=== PATIENT | female | born 1965 | race African-American/Black ===

== ENCOUNTER 2017-09-25 12:01 | Observation (INO) | payer MEDICARE, OTHER ==
[~2017-09-25] VITALS: Ht 165.1 cm; Wt 58.0 kg
[2017-09-25 12:24] VITALS: BP 153/87; PULSE 94; RESP 19; TEMP 98.2; O2SAT 99
[2017-09-25] MEDS ORDERED: METF500T PO (13:56)
[2017-09-25] MEDS ORDERED: DIAZ10TA PO (13:56)
[2017-09-25] MEDS ORDERED: VALS1TAB65 PO (13:56)
[2017-09-25] MEDS ORDERED: PRAV20TA2 PO (13:57)
[2017-09-25] MEDS ORDERED: MONT10TA4 PO (13:59)
[2017-09-25] MEDS ORDERED: [UNRECOGNIZED DRUG - OTHER] (13:59)
[2017-09-25] MEDS ORDERED: [UNRECOGNIZED DRUG - OTHER] EACH EYE (13:59)
[2017-09-25] MEDS ORDERED: ALLE4TAB10 PO (13:59)
[2017-09-25] MEDS ORDERED: ASPI81CH6 CHEW (13:59)
[2017-09-25] MEDS ORDERED: OMEP20TA93 PO (13:59)
[2017-09-25] MEDS ORDERED: SODIUM CHLORIDE 0.9% FLUSH 10 ML FLUSH IV FLUSH PRN ×2 (14:00→16:15)
--- NOTE | 2017-09-25 14:01 | PD ---
HPI Chief Complaint: Abdominal Pain Time Seen by Provider: 13:45 Travel History International Travel<30 days: No Contact w/Intl Traveler<30days: No Traveled to known affect area: No History of Present Illness HPI Per patient and mother, she is from [place], and decided to move up here 3 years ago. They currently live in [place], has never been to this hospital before. Complaint is swelling to arms and legs as well as swelling to her abdomen. Patient is also per mother has not had a bowel movement despite attempts with magnesium citrate, suppositories and enemas. Patient allegedly was in [facility] [place] prior, but per mother they have not done anything for her. Patient's mother also gives history that the patient is having more more difficulty swallowing food, currently not having any trouble swallowing liquids. Main complaint is having trouble moving her bowels. Denies any acute abdominal pain, but this no bloating. Denies any nausea vomiting or diarrhea. Denies any alleviating or aggravating factors. Denies any known drug allergy Past medical history significant for cerebral palsy wheelchair-bound, diabetes hypertension hypercholesterolemia PFSH Past Medical History ?: Not Social History Tobacco Use: No Allergies-Medications (Allergen,Severity, Reaction): Coded Allergies: No Known Allergies (Unverified , 09/25/17) Reported Meds & Prescriptions Reported Meds & Active Scripts Active Reported [lastain eye gtt] [atoz eye gtt] EACH EYE Allergy Tablets (Chlorpheniramine Maleate) 4 Mg Tab Unknown Dose PO Q4H PRN Montelukast (Montelukast Sodium) 10 Mg Tab 10 Mg PO HS Aspirin Low Dose (Aspirin) 81 Mg Chew 81 Mg CHEW DAILY Omeprazole 20 Mg Tab 20 Mg PO DAILY Pravastatin 20 Mg Tab 20 Mg PO DAILY Valsartan 160 Mg Tab 160 Mg PO DAILY Diazepam 10 Mg Tab 10 Mg PO DAILY Metformin (Metformin HCl) 500 Mg Tab 500 Mg PO BIDPC Review of Systems General / Constitutional: No: Fever Eyes: No: Visual changes HENT: No: Headaches Cardiovascular: No: Chest Pain or Discomfort Respiratory: No: Shortness of Breath Gastrointestinal: Positive: Abdominal Pain Genitourinary: No: Dysuria Musculoskeletal: No: Pain Skin: No Rash Neurologic: No: Weakness Psychiatric: No: Depression Endocrine: No: Polydipsia Hematologic/Lymphatic: No: Easy Bruising Physical Exam Narrative GENERAL: SKIN: Warm and dry. HEAD: Atraumatic. Normocephalic. EYES: Pupils equal and round. No scleral icterus. No injection or drainage. ENT: No nasal bleeding or discharge. Mucous membranes pink and moist. NECK: Trachea midline. No JVD. CARDIOVASCULAR: Regular rate and rhythm. RESPIRATORY: No accessory muscle use. Clear to auscultation. Breath sounds equal bilaterally. GASTROINTESTINAL: Abdomen soft, non-tender, nondistended. Hepatic and splenic margins not palpable. MUSCULOSKELETAL: Extremities without clubbing, cyanosis, or edema. No obvious deformities. Patient is showing flexor contractures to lower extremities and upper extremities, patient is able to move range of motion through approximately shoulders and minimally at hips patient is not able to bear weight and ambulate due to her cerebral palsy NEUROLOGICAL: Awake and alert. Per mother patient is at her baseline speech which is slurred PSYCHIATRIC: Appropriate mood and affect; insight and judgment normal. Data Data Last Documented VS Vital Signs Date Time Temp Pulse Resp B/P (MAP) Pulse Ox O2 Delivery O2 Flow Rate FiO2 09/25/17 15:06 98 Room Air 09/25/17 12:24 98.2 94 19 153/87 (109) Orders Orders Complete Blood Count With Diff (09/25/17 12:28) Comprehensive Metabolic Panel (09/25/17 12:28) Urinalysis - C+S If Indicated (09/25/17 12:28) Iv Access Insert/Monitor (09/25/17 12:28) Oxygen Administration (09/25/17 12:28) Oximetry (09/25/17 12:28) Lipase (09/25/17 12:28) Ct Abd/Pel W/O Iv Contrast (09/25/17 13:57) Ecg Monitoring (09/25/17 13:57) NPO (09/25/17 13:57) Sodium Chloride 0.9% Flush (Ns Flush) (09/25/17 14:00) B-Type Natriuretic Peptide (09/25/17 13:57) Ckmb (Isoenzyme) Profile (09/25/17 13:57) Troponin I (09/25/17 13:57) Chest, Single Ap (09/25/17 13:57) Admit Order (Ed Use Only) (09/25/17 16:15) Sodium Chlorid 0.9% 500 Ml Inj (Ns 500 M (09/25/17 16:15) Place In Observation (09/25/17 ) Vital Signs (Adult) Q4H (09/25/17 16:14) Activity Oob With Assistance (09/25/17 16:14) Slitter Creaser Slotter Helper / Telemetry .CONTINUOUS (09/25/17 16:14) Diet Clear Liquid (09/25/17 Dinner) Sodium Chloride 0.9% Flush (Ns Flush) (09/25/17 16:15) Sodium Chloride 0.9% Flush (Ns Flush) (09/25/17 21:00) Basic Metabolic Panel (Bmp) (09/26/17 06:00) Complete Blood Count With Diff (09/26/17 06:00) Case Management Consult (09/25/17 16:14) Naloxone Inj (Narcan Inj) (09/25/17 16:15) Consult Gastroenterology (09/25/17 ) Dext 5%-Nacl 0.45% 1000 Ml Inj (D5w-1/2 (09/25/17 16:15) Labs Laboratory Tests Test 09/25/17 14:50 White Blood Count 6.8 TH/MM3 Red Blood Count 4.60 MIL/MM3 Hemoglobin 13.0 GM/DL Hematocrit 40.4 % Mean Corpuscular Volume 87.8 FL Mean Corpuscular Hemoglobin 28.4 PG Mean Corpuscular Hemoglobin Concent 32.3 % Red Cell Distribution Width 15.6 % Platelet Count 185 TH/MM3 Mean Platelet Volume 9.9 FL Neutrophils (%) (Auto) 58.3 % Lymphocytes (%) (Auto) 30.0 % Monocytes (%) (Auto) 5.7 % Eosinophils (%) (Auto) 5.4 % Basophils (%) (Auto) 0.6 % Neutrophils # (Auto) 3.9 TH/MM3 Lymphocytes # (Auto) 2.0 TH/MM3 Monocytes # (Auto) 0.4 TH/MM3 Eosinophils # (Auto) 0.4 TH/MM3 Basophils # (Auto) 0.0 TH/MM3 CBC Comment DIFF FINAL Differential Comment Urine Color LIGHT-YELLOW Urine Turbidity CLEAR Urine pH 7.0 Urine Specific [place] 1.010 Urine Protein NEG mg/dL Urine Glucose (UA) NEG mg/dL Urine Ketones NEG mg/dL Urine Occult Blood NEG Urine Nitrite NEG Urine Bilirubin NEG Urine Urobilinogen LESS THAN 2.0 MG/DL Urine Leukocyte Esterase TRACE Urine RBC 1 /hpf Urine WBC LESS THAN 1 /hpf Urine Squamous Epithelial Cells 1 /hpf Urine Mucus FEW /lpf Microscopic Urinalysis Comment CULT NOT INDICATED Blood Urea Nitrogen 8 MG/DL Creatinine 0.58 MG/DL Random Glucose 114 MG/DL Total Protein 7.9 GM/DL Albumin 3.8 GM/DL Calcium Level 9.6 MG/DL Alkaline Phosphatase 86 U/L Aspartate Amino Transf (AST/SGOT) 13 U/L Alanine Aminotransferase (ALT/SGPT) 18 U/L Total Bilirubin 0.3 MG/DL Sodium Level 143 MEQ/L Potassium Level 3.8 MEQ/L Chloride Level 108 MEQ/L Carbon Dioxide Level 27.7 MEQ/L Anion Gap 7 MEQ/L Estimat Glomerular Filtration Rate 110 ML/MIN Total Creatine Kinase 39 U/L Troponin I LESS THAN 0.02 NG/ML B-Type Natriuretic Peptide 2 PG/ML Lipase 138 U/L MDM Medical Decision Making Medical Screen Exam Complete: Yes Emergency Medical Condition: Yes Medical Record Reviewed: Yes Differential Diagnosis Ileus versus small bowel obstruction versus constipation versus pancreatitis versus diverticulitis versus colitis versus hepatitis Narrative Course CBC shows no leukocytosis, no anemia, normal platelet count, no left shift UA shows no evidence of a UTI chemistry are currently pending as of 1543. Electrolytes are all within normal limits, normal kidney liver and pancreatic functions, beta natruretic peptide is negative Chest x-ray read by radiologist as underinflation but no acute cardiopulmonary abnormality identified. CT abdomen and pelvis read by radiologist as no CT evidence of small bowel obstruction, uncomplicated colonic diverticulosis, and degenerative changes and scoliosis of the thoracolumbar spine. Due to the difficulty swallowing and eating without choking episodes according to the mother, I will have the patient admitted for further evaluation and test by physical therapy of her swallow reflex Diagnosis Primary Impression: Constipation Additional Impression: Difficulty swallowing Admitting Information Admitting Physician Requests: Chetan Leyva MD Sep 25, 2017 14:01
--- NOTE | 2017-09-25 14:38 | RADRPT ---
EXAM DATE/TIME: 09/25/2017 14:10 [facility] COMPARISON: No previous studies available for comparison. INDICATIONS : Abdominal pain and constipation for 2 days. ORAL CONTRAST: No oral contrast ingested. RADIATION DOSE: 8.5 CTDIvol (mGy) MEDICAL HISTORY : Hypertension. Diabetes mellitus type 2. Cerebral palsy. SURGICAL HISTORY : Spinal surgery/ rods. ENCOUNTER: Initial ACUITY: 1 day PAIN SCALE: 4/10 LOCATION: Bilateral Abdomen TECHNIQUE: Volumetric scanning of the abdomen and pelvis was performed. Using automated exposure control and ad justment of the mA and/or kV according to patient size, radiation dose was kept as low as reasonably achievable to obtain optimal diagnostic quality images. DICOM format image data is available electro nically for review and comparison. FINDINGS: LOWER LUNGS: The visualized lower lungs are clear. LIVER: Homogeneous density without lesion. There is no dilation of the biliary tree. No calcified gallston es. SPLEEN: Normal size without lesion. PANCREAS: Within normal limits. KIDNEYS: Normal in size and shape. There is no mass, stone, or hydronephrosis. ADRENAL GLANDS: Within normal limits. VASCULAR: There is no aortic aneurysm. BOWEL/MESENTERY: There is no evidence of small bowel obstruction. Uncomplicated colonic diverticulosis is noted. No ac [place] diverticulitis is noted. The appendix is normal. ABDOMINAL WALL: Within normal limits. RETROPERITONEUM: There is no lymphadenopathy. BLADDER: No wall thickening or mass. REPRODUCTIVE: Within normal limits. INGUINAL: There is no lymphadenopathy or hernia. MUSCULOSKELETAL: Degenerative changes and scoliosis of the lumbar spine are noted. Delgado rods are noted. CONCLUSION: 1. No CT evidence of small bowel obstruction. 2. Uncomplicated colonic diverticulosis. 3. Degenerative changes and scoliosis of the thoracolumbar spine. Pepe Pedro MD on September 25, 2017 at 14:30 Board Certified Radiologist. This report was verified electronically.
[2017-09-25 15:09] LABS: AUTOMATED NEUTROPHIL # 3.9 TH/MM3 (1.8-7.7); BASOPHIL % 0.6 % (0.0-2.0); EOSINOPHIL # 0.4 TH/MM3 (0-0.4); EOSINOPHIL % 5.4 % (0.0-4.0); HEMATOCRIT 40.4 % (35.0-46.0); MEAN CELL VOLUME 87.8 FL (80.0-100.0); MEAN CORPUSCULAR HEMOGLOBIN 28.4 PG (27.0-34.0); MEAN CORPUSCULAR HGB CONC 32.3 % (32.0-36.0); MEAN PLATELET VOLUME 9.9 FL (7.0-11.0); MONO % 5.7 % (0.0-8.0); MONOCYTE # 0.4 TH/MM3 (0-0.9); NEUT % 58.3 % (16.0-70.0); PLATELET COUNT 185 TH/MM3 (150-450); RED CELL DISTRIBUTION WIDTH 15.6 % (11.6-17.2); WHITE BLOOD COUNT 6.8 TH/MM3 (4.0-11.0)
[2017-09-25 15:14] LABS: BILIRUBIN, URINE NEG (NEG); BLOOD, URINE NEG (NEG); GLUCOSE,URINE NEG (NEG); KETONE, URINE NEG (NEG); MUCUS URINE FEW /lpf (OCC); NITRITE,URINE NEG (NEG); SQUAMOUS EPITHELIAL CELL URINE 1 /hpf (0-5); URINE COLOR LIGHT-YELLOW (YELLW/STRAW); URINE LEUKOCYTE ESTERASE TRACE (NEG)
--- NOTE | 2017-09-25 15:30 | RADRPT ---
EXAM DATE/TIME: 09/25/2017 15:05 [facility] COMPARISON: No previous studies available for comparison. INDICATIONS : Short of breath MEDICAL HISTORY : Hypertension. Diabetes mellitus type 2. Cerebral palsy SURGICAL HISTORY : Spinal surgery/ rods. ENCOUNTER: Initial ACUITY: 1 day PAIN SCORE: 0/10 LOCATION: chest FINDINGS: Portable AP view of the chest demonstrates a normal-sized cardiac silhouette. Lungs are underinflated . No pleural effusion, airspace consolidation, or pneumothorax is visualized. The bones and soft tiss ues demonstrate no acute finding. There is dextroscoliosis of the thoracic spine. Spinal rods are pre sent. EKG lines overlie the patient. CONCLUSION: Underinflation but no acute cardiopulmonary abnormality is identified. Reginaldo Dillon MD on September 25, 2017 at 15:26 Board Certified Radiologist. This report was verified electronically.
[2017-09-25 15:44] LABS: ALBUMIN 3.8 GM/DL (3.4-5.0); ALT (GPT) 18 U/L (10-53); AST (GOT) 13 U/L (15-37); BICARBONATE 27.7 MEQ/L (21.0-32.0); BLOOD UREA NITROGEN 8 MG/DL (7-18); CALCIUM 9.6 MG/DL (8.5-10.1); CHLORIDE 108 MEQ/L (98-107); CREATININE 0.58 MG/DL (0.50-1.00); GLOMERULAR FILTRATION RATE 110 ML/MIN (>89); GLUCOSE,RANDOM 114 MG/DL (74-106); SODIUM (NA) 143 MEQ/L (136-145)
[2017-09-25 15:46] LABS: ALKALINE PHOSPHATASE 86 U/L (45-117); TOTAL BILIRUBIN ADULT 0.3 MG/DL (0.2-1.0); TOTAL PROTEIN 7.9 GM/DL (6.4-8.2)
[2017-09-25] MEDS ORDERED: NALOXONE HCL 0.4 MG/ML AMP IV PUSH PRN (16:15)
[2017-09-25] MEDS ORDERED: SODIUM CHLORID 0.9% 500 ML INJ 500 ML IV ONE (16:15)
[2017-09-25] MEDS ORDERED: IOHEXOL 350 MG/ML 10 ML VIAL (for RAD DIAG) IVCONTRAST ONE (16:18)
[2017-09-25] MEDS: DEXT 5%-NACL 0.45% 1000 ML INJ 1,000 ML IV SCH (16:38)
[2017-09-25 16:42] VITALS: BP 168/102; PULSE 91; RESP 18; O2SAT 96
--- NOTE | 2017-09-25 20:03 | HHI.HP ---
HPI Service [facility] Primary Care Physician Unknown Admission Diagnosis SWALLOW EVAL, CONSTIPATION Diagnoses: Travel History International Travel<30 Days: No Contact w/Intl Traveler <30 Da: No Traveled to Known Affected Are: No History of Present Illness History from patient, ER physician communication, mother at the bedside, and review of medical records. Patient reported that she came to the hospital because she felt fluid all over her body and her stomach. She reports that her stomach has been bloating more and more. She states every time mom gave her medicine, it bloats her up constantly. She states that the symptoms comes and goes. However denies any nausea or vomiting. She reports she sometimes felt the food is stuck in her throat. She also admits to coughing a lot after she eats something. Does not really matter what type of food or what consistency she eats. The symptoms are there. Denies any fever. She essentially kept saying that she came to the hospital because she wants to check out her airways. She further clarifies with her mom that she has been short of breath. She reports she also came to check my heart because she has had family history of heart failures and heart issues. She sometimes reports of chest pains. She reports mainly as shortness of breath, abdominal bloating, or and ankle edema. She then also complained about having constant urination problem. But denies any urinary burning or pain on urination or blood in her urine. She states that she went to [facility] twice for her symptoms and nothing was really done. She denies high blood sugars at home. She states her sugars are always in the 100s and never greater than 200. Mom at the bedside also confirms this. Patient reports of constipation chronically. She states when she was at [place], mom was given multiple different medications to give it to her all at once. Even though she took the medicines, she would go to bathroom once and then she would get constipated again. She is worried about this constipation. Patient has history of cerebral palsy at which made her wheelchair-bound. She does have diabetes. She is not sure about gastroparesis. She does not really take much pain medicines. Review of Systems Except as stated in HPI: all other systems reviewed are Neg Past Family Social History Past Medical History has hx of acid reflux sinus problems asthma htn dm no egd had colonoscopy- 3 yrs ago- wnl hx of asthma cerebral palsy wheel chair bound Past Surgical History back sx scoliosis sx hamstring sx groin sx hysterectomy for fibroids Allergies: Coded Allergies: No Known Allergies (Unverified , 09/25/17) Family History father- kidney failure father- chf, dm, htn Social History no etoh abuse or drug abuse no smoking Physical Exam Vital Signs Vital Signs Date Time Temp Pulse Resp B/P (MAP) Pulse Ox O2 Delivery O2 Flow Rate FiO2 09/25/17 16:42 91 18 168/102 (124) 96 09/25/17 15:06 98 Room Air 09/25/17 12:24 98.2 94 19 153/87 (109) 99 Physical Exam GENERAL: This is a well-nourished, well-developed patient, in no apparent distress. Very pleasant lady SKIN: No rashes, ecchymoses or lesions. Cool and dry. HEAD: Atraumatic. Normocephalic. No temporal or scalp tenderness. EYES: No scleral icterus. No injection or drainage. ENT: Nose without bleeding, purulent drainage or septal hematoma. Airway patent. NECK: Trachea midline. No JVD. Supple, nontender, no meningeal signs. CARDIOVASCULAR: Regular rate and rhythm without murmurs, gallops, or rubs. RESPIRATORY: Clear to auscultation. Breath sounds equal bilaterally. No wheezes , rales, or rhonchi. GASTROINTESTINAL: Abdomen soft, non-tender, nondistended.. No guarding. MUSCULOSKELETAL: Extremities without clubbing, cyanosis, or edema. . No calf tenderness. Bilateral lower extremity muscle wasting. Upper extremity with wasted muscles and mild contracture. Neuro: Awake, alert, oriented. Power is 0 out of 5 in the lower extremities. Normal speech. Laboratory Laboratory Tests Test 09/25/17 14:50 White Blood Count 6.8 Red Blood Count 4.60 Hemoglobin 13.0 Hematocrit 40.4 Mean Corpuscular Volume 87.8 Mean Corpuscular Hemoglobin 28.4 Mean Corpuscular Hemoglobin Concent 32.3 Red Cell Distribution Width 15.6 Platelet Count 185 Mean Platelet Volume 9.9 Neutrophils (%) (Auto) 58.3 Lymphocytes (%) (Auto) 30.0 Monocytes (%) (Auto) 5.7 Eosinophils (%) (Auto) 5.4 Basophils (%) (Auto) 0.6 Neutrophils # (Auto) 3.9 Lymphocytes # (Auto) 2.0 Monocytes # (Auto) 0.4 Eosinophils # (Auto) 0.4 Basophils # (Auto) 0.0 CBC Comment DIFF FINAL Differential Comment Urine Color LIGHT-YELLOW Urine Turbidity CLEAR Urine pH 7.0 Urine Specific [place] 1.010 Urine Protein NEG Urine Glucose (UA) NEG Urine Ketones NEG Urine Occult Blood NEG Urine Nitrite NEG Urine Bilirubin NEG Urine Urobilinogen LESS THAN 2.0 Urine Leukocyte Esterase TRACE Urine RBC 1 Urine WBC LESS THAN 1 Urine Squamous Epithelial Cells 1 Urine Mucus FEW Microscopic Urinalysis Comment CULT NOT INDICATED Blood Urea Nitrogen 8 Creatinine 0.58 Random Glucose 114 Total Protein 7.9 Albumin 3.8 Calcium Level 9.6 Alkaline Phosphatase 86 Aspartate Amino Transf (AST/SGOT) 13 Alanine Aminotransferase (ALT/SGPT) 18 Total Bilirubin 0.3 Sodium Level 143 Potassium Level 3.8 Chloride Level 108 Carbon Dioxide Level 27.7 Anion Gap 7 Estimat Glomerular Filtration Rate 110 B-Type Natriuretic Peptide 2 Lipase 138 Result Diagram: 09/25/17 1450 09/25/17 1450 Imaging Last 48 hours Impressions Chest X-Ray 09/25/[id number] Signed Impressions: Service Date/Time: September 15:05 - CONCLUSION: Underinflation but no acute cardiopulmonary abnormality is identified. Reginaldo Dillon MD Abdomen/Pelvis CT 09/25/[id number] Signed Impressions: Service Date/Time: September 14:10 - CONCLUSION: 1. No CT evidence of small bowel obstruction. 2. Uncomplicated colonic diverticulosis. 3. Degenerative changes and scoliosis of the thoracolumbar spine. MD Bonita Dela Cruzi VTE Risk Assessment Caprini VTE Risk Assessment: Mod/High Risk (score >= 2) Caprini Risk Assessment Model Point Value = 1 Point Value = 2 Point Value = 3 Point Value = 5 Age 41-60 Minor surgery BMI > 25 kg/m2 Swollen legs Varicose veins or History of unexplained or recurrent spontaneous Oral contraceptives or hormone replacement Sepsis (< 1 month) Serious lung disease, including pneumonia (< 1 month) Abnormal pulmonary function Acute myocardial infarction Congestive heart failure (< 1 month) History of inflammatory bowel disease Medical patient at bed rest Age 61-74 Arthroscopic surgery Major open surgery (> 45 min) Laparoscopic surgery (> 45 min) Malignancy Confined to bed (> 72 hours) Immobilizing plaster cast Central venous access Age >= 75 History of VTE Family history of VTE Factor V Leiden Prothrombin [id number] Lupus anticoagulant Anticardiolipin antibodies Elevated serum homocysteine Heparin-induced thrombocytopenia Other congenital or acquired thrombophilia Stroke (< 1 month) Elective arthroplasty Hip, pelvis, or leg fracture Acute spinal cord injury (< 1 month) Prophylaxis Regimen Total Risk Factor Score Risk Level Prophylaxis Regimen 0-1 Low Early ambulation 2 Moderate Order ONE of the following: *Sequential Compression Device (SCD) *Heparin 5000 units SQ BID 3-4 Higher Order ONE of the following medications: *Heparin 5000 units SQ TID *Enoxaparin/Lovenox 40 mg SQ daily (WT < 150 kg, CrCl > 30 mL/min) *Enoxaparin/Lovenox 30 mg SQ daily (WT < 150 kg, CrCl > 10-29 mL/min) *Enoxaparin/Lovenox 30 mg SQ BID (WT < 150 kg, CrCl > 30 mL/min) AND/OR *Sequential Compression Device (SCD) 5 or more Highest Order ONE of the following medications: *Heparin 5000 units SQ TID (Preferred with Epidurals) *Enoxaparin/Lovenox 40 mg SQ daily (WT < 150 kg, CrCl > 30 mL/min) *Enoxaparin/Lovenox 30 mg SQ daily (WT < 150 kg, CrCl > 10-29 mL/min) *Enoxaparin/Lovenox 30 mg SQ BID (WT < 150 kg, CrCl > 30 mL/min) AND *Sequential Compression Device (SCD) Assessment and Plan Assessment and Plan Impression: Dyspnea Chronic constipation Abdominal bloating Dysphagia/odynophagia Hypertension Diabetes GERD/acid reflux Asthma Sinus problems and allergies History of having had colonoscopy 3 years ago and was told normal. Cerebral palsy. Wheelchair-bound. Plan: CT pulmonary angiogram. Echocardiogram in a.m. IV hydration with D5 half normal saline at 42 cc/h. N.p.o. Swallow evaluation. GI consult for EGD. Resume home meds. DVT prophylaxis with Lovenox. GI prophylaxis on pantoprazole. Discussed Condition With Patient, mom, ER physician Ran Horowitz MD Sep 25, 2017 20:03
[2017-09-25] MEDS: SODIUM CHLORIDE 0.9% FLUSH 10 ML FLUSH IV FLUSH SCH (20:04)
[2017-09-25 20:23] VITALS: BP 175/79; PULSE 93; RESP 16; O2SAT 98
[2017-09-25] MEDS: MONTELUKAST SODIUM 10 MG TAB PO SCH (22:40)
[2017-09-25 23:10] LABS: TROPONIN I LESS THAN 0.02 NG/ML (0.02-0.05)
[2017-09-25 23:59] VITALS: BP 135/83; PULSE 85; RESP 16; TEMP 98.4; O2SAT 97
[2017-09-26] VITALS (7 sets, daily range): BP systolic 121–139; BP diastolic 63–84; PULSE 87–100; RESP 16–18; TEMP 97.7–98.6; O2SAT 96–97
[2017-09-26 07:56] LABS: AUTOMATED NEUTROPHIL # 2.7 TH/MM3 (1.8-7.7); BASOPHIL % 0.6 % (0.0-2.0); EOSINOPHIL # 0.3 TH/MM3 (0-0.4); EOSINOPHIL % 4.6 % (0.0-4.0); HEMOGLOBIN 12.4 GM/DL (11.6-15.3); LYMPH % 39.8 % (9.0-44.0); LYMPHOCYTE # 2.2 TH/MM3 (1.0-4.8); MEAN CELL VOLUME 87.7 FL (80.0-100.0); MEAN CORPUSCULAR HEMOGLOBIN 28.6 PG (27.0-34.0); MEAN CORPUSCULAR HGB CONC 32.7 % (32.0-36.0); MEAN PLATELET VOLUME 9.9 FL (7.0-11.0); MONO % 6.1 % (0.0-8.0); MONOCYTE # 0.3 TH/MM3 (0-0.9); NEUT % 48.9 % (16.0-70.0); PLATELET COUNT 176 TH/MM3 (150-450); RED BLOOD COUNT 4.33 MIL/MM3 (4.00-5.30); RED CELL DISTRIBUTION WIDTH 15.3 % (11.6-17.2); WHITE BLOOD COUNT 5.6 TH/MM3 (4.0-11.0)
[2017-09-26 08:12] LABS: BICARBONATE 29.9 MEQ/L (21.0-32.0); CALCIUM 9.3 MG/DL (8.5-10.1); CREATININE 0.52 MG/DL (0.50-1.00)
[2017-09-26] MEDS ORDERED: PNEUMOCOCCAL POLYVALENT INJ 25 MCG/0.5 ML SYR IM ONE (09:00)
[2017-09-26] MEDS: VALSARTAN 160 MG TAB PO SCH (09:35)
[2017-09-26] MEDS: ASPIRIN 81 MG CHEW TAB CHEW SCH (09:35)
[2017-09-26] MEDS: PANTOPRAZOLE SOD 20 MG DELAYED RELEASE TAB PO SCH (09:35)
[2017-09-26] MEDS: PRAVASTATIN SOD 20 MG TAB PO SCH (09:35)
[2017-09-26] MEDS: DIAZEPAM 10 MG TAB PO SCH (09:35)
[2017-09-26] MEDS: SODIUM CHLORIDE 0.9% FLUSH 10 ML FLUSH IV FLUSH SCH ×2 (09:36→20:48)
[2017-09-26] MEDS: ENOXAPARIN SODIUM 40 MG/0.4 ML SYRINGE SQ SCH (09:36)
--- NOTE | 2017-09-26 09:50 | PD.CONS ---
HPI History of Present Illness This is a 51 year old female with hx cerebral palsy who presented with difficulty [id number] and "swelling" in body. Hx obtained from pts mother, pt is noncontributory. Pt is having lower extremity swelling and abd distention. SHe has had trouble swallowing for the last 2-3 months. When she eats she starts coughing, both with liquids and solids. Mother reports pt does not have n /c, abd pain, blood in stool, black tarry stool. Admits chronic constipation. SHe had colonoscopy 2014 in [place] that was normal. Never had an EGD. Takes baby asa daily, no other blood thinners. (Waleska Delatorre) PFSH Past Medical History has hx of acid reflux sinus problems asthma htn dm no egd had colonoscopy- 3 yrs ago- wnl hx of asthma cerebral palsy wheel chair bound Past Surgical History back sx scoliosis sx hamstring sx groin sx hysterectomy for fibroids (Waleska Delatorre) Coded Allergies: No Known Allergies (Unverified , 09/25/17) Family History father- kidney failure father- chf, dm, htn Social History no etoh abuse or drug abuse no smoking (Waleska Delatorre) Review of Systems Constitutional: DENIES: Fever Endocrine: DENIES: Polydipsia Eyes: DENIES: Blurred vision Ears, nose, mouth, throat: DENIES: Hearing loss Respiratory: DENIES: Cough Cardiovascular: DENIES: Chest pain Gastrointestinal: DENIES: Abdominal pain, Black stools, Bloody stools Genitourinary: DENIES: Hematuria Musculoskeletal: DENIES: Muscle aches Integumentary: DENIES: Abnormal pigmentation Hematologic/lymphatic: DENIES: Bruising Immunologic/allergic: DENIES: Eczema Neurologic: COMPLAINS OF: Abnormal gait Psychiatric: DENIES: Confusion (Waleska Delatorre) GI Exam Vitals I&O Vital Signs Date Time Temp Pulse Resp B/P (MAP) Pulse Ox O2 Delivery O2 Flow Rate FiO2 09/26/17 07:36 98.2 93 16 139/79 (99) 96 09/26/17 04:26 97.7 89 17 121/63 (82) 97 09/25/17 23:59 98.4 85 16 135/83 (100) 97 09/25/17 20:23 93 16 175/79 (111) 98 09/25/17 16:42 91 18 168/102 (124) 96 09/25/17 15:06 98 Room Air 09/25/17 12:24 98.2 94 19 153/87 (109) 99 I/O 09/25/17 09/25/17 09/25/17 09/26/17 09/26/17 09/26/17 07:00 15:00 23:00 07:00 15:00 23:00 Intake Total 240 ml Balance 240 ml Intake Oral 240 ml # Voids 2 Imaging Last Impressions Chest X-Ray 09/25/[id number] Signed Impressions: Service Date/Time: September 15:05 - CONCLUSION: Underinflation but no acute cardiopulmonary abnormality is identified. Reginaldo Dillon MD Abdomen/Pelvis CT [id number]/25/171356 Signed Impressions: Service Date/Time: September 14:10 - CONCLUSION: 1. No CT evidence of small bowel obstruction. 2. Uncomplicated colonic diverticulosis. 3. Degenerative changes and scoliosis of the thoracolumbar spine. Pepe Pedro MD Laboratory Test 09/25/17 14:50 09/26/17 07:14 White Blood Count 6.8 TH/MM3 5.6 TH/MM3 Red Blood Count 4.60 MIL/MM3 4.33 MIL/MM3 Hemoglobin 13.0 GM/DL 12.4 GM/DL Hematocrit 40.4 % 38.0 % Mean Corpuscular Volume 87.8 FL 87.7 FL Mean Corpuscular Hemoglobin 28.4 PG 28.6 PG Mean Corpuscular Hemoglobin Concent 32.3 % 32.7 % Red Cell Distribution Width 15.6 % 15.3 % Platelet Count 185 TH/MM3 176 TH/MM3 Mean Platelet Volume 9.9 FL 9.9 FL Neutrophils (%) (Auto) 58.3 % 48.9 % Lymphocytes (%) (Auto) 30.0 % 39.8 % Monocytes (%) (Auto) 5.7 % 6.1 % Eosinophils (%) (Auto) 5.4 % 4.6 % Basophils (%) (Auto) 0.6 % 0.6 % Neutrophils # (Auto) 3.9 TH/MM3 2.7 TH/MM3 Lymphocytes # (Auto) 2.0 TH/MM3 2.2 TH/MM3 Monocytes # (Auto) 0.4 TH/MM3 0.3 TH/MM3 Eosinophils # (Auto) 0.4 TH/MM3 0.3 TH/MM3 Basophils # (Auto) 0.0 TH/MM3 0.0 TH/MM3 CBC Comment DIFF FINAL DIFF FINAL Differential Comment Urine Color LIGHT-YELLOW Urine Turbidity CLEAR Urine pH 7.0 Urine Specific [place] 1.010 Urine Protein NEG mg/dL Urine Glucose (UA) NEG mg/dL Urine Ketones NEG mg/dL Urine Occult Blood NEG Urine Nitrite NEG Urine Bilirubin NEG Urine Urobilinogen LESS THAN 2.0 MG/DL Urine Leukocyte Esterase TRACE Urine RBC 1 /hpf Urine WBC LESS THAN 1 /hpf Urine Squamous Epithelial Cells 1 /hpf Urine Mucus FEW /lpf Microscopic Urinalysis Comment CULT NOT INDICATED Blood Urea Nitrogen 8 MG/DL 7 MG/DL Creatinine 0.58 MG/DL 0.52 MG/DL Random Glucose 114 MG/DL 122 MG/DL Total Protein 7.9 GM/DL Albumin 3.8 GM/DL Calcium Level 9.6 MG/DL 9.3 MG/DL Alkaline Phosphatase 86 U/L Aspartate Amino Transf (AST/SGOT) 13 U/L Alanine Aminotransferase (ALT/SGPT) 18 U/L Total Bilirubin 0.3 MG/DL Sodium Level 143 MEQ/L 146 MEQ/L Potassium Level 3.8 MEQ/L 3.5 MEQ/L Chloride Level 108 MEQ/L 109 MEQ/L Carbon Dioxide Level 27.7 MEQ/L 29.9 MEQ/L Anion Gap 7 MEQ/L 7 MEQ/L Estimat Glomerular Filtration Rate 110 ML/MIN 150 ML/MIN Total Creatine Kinase 39 U/L Troponin I LESS THAN 0.02 NG/ML B-Type Natriuretic Peptide 2 PG/ML Lipase 138 U/L Physical Examination HEENT: normocephalic; atraumatic; no jaundice. CHEST: CTA CARDIAC: RRR ABDOMEN: Soft, nondistended, nontender; no hepatosplenomegaly; bowel sounds are present in all four quadrants. EXTREMITIES: No clubbing, cyanosis, or edema. BLE atrophy SKIN: Normal; no rash; no jaundice. GREENHOUSE STAFF: alert (Waleska Delatorre) Assessment and Plan Plan ASSESSMENT - dysphagia - for last 2-3 months pt having coughing and choking sensation with liquids and solids, has not eaten much. MANAGER TRANSFUSION has evaluated and she is currently on clear liquid diet. Never had EGD. - chronic constipation - 2/2 CP & wheelchair bound. PLAN - EGD today - obtain consent - NPO - continue ST - consider MBS if EGD neg - bowel regimen - further recs to follow pt seen by myself and Dr Starr and this note is on his behalf (Waleska Delatorre) Plan Patient was seen and examined, agree with above note, plan on doing upper endoscopy with possible dilation and evaluation of the GI tract today, patient is n.p.o., patient accompanied with her mom and both of them agree with the procedure, consent was signed (Hilda Starr MD) Waleska Delatorre Sep 26, 2017 09:49 Hilda Starr MD Sep 26, 2017 12:10
[2017-09-26] MEDS ORDERED: PROPOFOL 200 MG/20 ML AMP IV ONE (12:00)
[2017-09-26] MEDS ORDERED: PHENYLEPH/NS 1000 MCG/10 ML SYR IV ONE (12:00)
[2017-09-26] MEDS ORDERED: LIDOCAINE HCL 1% PF 5 ML SYRINGE OTHER ONE (12:00)
--- NOTE | 2017-09-26 12:13 | PD.PROCEDR ---
GI Procedure PROCEDURE PERFORMED Upper endoscopy, biopsy, dilation with guidewire INDICATION FOR PROCEDURE Nausea vomiting, dysphagia PROCEDURE: The procedure, risks and benefits were discussed with Ms. Nichols and informed consent was obtained. Anesthesia sedated her with Diprivan. She was placed in the left lateral decubitus position. EGD: The Pentax videoscope was introduced through the oropharynx and advanced to the second portion of the duodenum under direct visualization. Retroflexion was performed in the stomach., Biopsy from the antrum was performed, dilation of distal esophageal drink was done with savory guidewire dilator size 17mm ESTIMATED BLOOD LOSS: None SPECIMENS REMOVED: Antrum COMPLICATIONS: None IMPRESSION: Distal esophageal ring status post dilation size 17 mm savory guidewire dilator Mild gastritis biopsy was done from the antrum Normal duodenum PLAN: No NSAIDs Zantac 150 milligrams twice daily Chew food well Okay to be discharged if no vomiting and tolerating diet from J stent Dilation as needed Hilda Starr MD Sep 26, 2017 12:13
--- NOTE | 2017-09-26 14:42 | HHI.PR ---
Subjective Remarks Follow-up visit abdominal pain, constipation, bloating. Patient seen and examined today. Mother and personal CLOTH SHRINKING SUPERVISOR at the bedside. Patient states she continues to have abdominal bloatedness. States that she is having problem with food but does not have problems with any drinks. Mother at the bedside states that patient has been having constipation even though she has been giving her laxatives and stool softeners. Ports constipation, bloated. Denies abdominal cramping. Denies pain and discomfort. Denies SOB/ dyspnea. Denies chest pain, palpitations, headaches, dizziness. Denies fevers, chills. Denies dysuria. Objective Vitals Vital Signs Date Time Temp Pulse Resp B/P (MAP) Pulse Ox O2 Delivery O2 Flow Rate FiO2 09/26/17 12:15 98.2 97 16 137/93 (108) 98 09/26/17 07:36 98.2 93 16 139/79 (99) 96 09/26/17 04:26 97.7 89 17 121/63 (82) 97 09/25/17 23:59 98.4 85 16 135/83 (100) 97 09/25/17 20:23 93 16 175/79 (111) 98 09/25/17 16:42 91 18 168/102 (124) 96 09/25/17 15:06 98 Room Air I/O 09/25/17 09/25/17 09/25/17 09/26/17 09/26/17 09/26/17 07:00 15:00 23:00 07:00 15:00 23:00 Intake Total 240 ml 100 ml Balance 240 ml 100 ml Intake Oral 240 ml Other 100 ml # Voids 2 Result Diagram: 09/26/17 0714 09/26/17 0714 Imaging Last Impressions Chest X-Ray 09/25/171356 Signed Impressions: Service Date/Time: September 15:05 - CONCLUSION: Underinflation but no acute cardiopulmonary abnormality is identified. Reginaldo Dillon MD Abdomen/Pelvis CT 09/25/17 [id number] Signed Impressions: Service Date/Time: September 14:10 - CONCLUSION: 1. No CT evidence of small bowel obstruction. 2. Uncomplicated colonic diverticulosis. 3. Degenerative changes and scoliosis of the thoracolumbar spine. Pepe Pedro MD Objective Remarks GENERAL: This is a well-nourished, well-developed patient, in no apparent distress. SKIN: Warm and dry. HEENT: Normocephalic. Pupils equal round and reactive. Nose without bleeding. Airway patent. Left facial droop. NECK: Trachea midline. Mild nuchal rigidity. CARDIOVASCULAR: Regular rate and rhythm without murmurs, gallops, or rubs. RESPIRATORY: Clear to auscultation. Breath sounds equal bilaterally. No wheezes , rales, or rhonchi. GASTROINTESTINAL: Abdomen soft, non-tender, nondistended. Bowel Sounds normoactive x4. MUSCULOSKELETAL: Extremities without clubbing, cyanosis. Bilateral foot edema. Bilateral foot drop and contraction. Right upper extremity contraction. Left upper extremity contraction. Prefers leaning towards the left side. NEUROLOGICAL: Awake and alert. Oriented to place, person. Normal speech. Procedures EGD A/P Problem List: (1) GERD (gastroesophageal reflux disease) ICD Code: K21.9 - Gastro-esophageal reflux disease without esophagitis (2) Esophageal stricture ICD Code: K22.2 - Esophageal obstruction (3) Cerebral palsy ICD Code: G80.9 - Cerebral palsy, unspecified (4) Constipation by delayed colonic transit ICD Code: K59.01 - Slow transit constipation Assessment and Plan Patient is a 51 year old -[place] female with history of cerebral palsy at , GERD, asthma, HTN who came into the hospital with complaints of stomach bloating, chronic constipation unable to eat. Abdominal bloating Dysphasia, odynophagia GERD -Gastric neurology consulted. Patient had EGD today -EGD showed distal esophageal ring status post dilatation size 7 mm savory guidewire dilator. Mild gastritis biopsy was done from the antrum. Normal duodenum. -Recommends no NSAIDs. Zantac 150 mg twice a day. Chew food well. Dilatation as needed. -We will have patient follow-up with GI Chronic constipation -No BM 2 days per mother. -We will give lactulose 1 dose now, and enema -CT of the abdomen and pelvis showed no CT evidence of small bowel obstruction. Uncomplicated colonic diverticulosis. Degenerative changes and scoliosis of thoracolumbar spine Asthma, not in exacerbation Sinus problems and allergies not in exacerbation. -Continue Singulair HTN HLD -Continue valsartan, aspirin, pravastatin DVT prop Lovenox Discharge Planning Plan to [place] home when patient is eating well. Pending bowel movement Leticia Álvarez [facility] Sep 26, 2017 14:42
[2017-09-26] MEDS ORDERED: SENNOSIDES 8.6 MG TAB PO PRN (14:45)
[2017-09-26] MEDS ORDERED: BISACODYL 10 MG SUPP RECTAL PRN (14:45)
[2017-09-26] MEDS ORDERED: MAGNESIUM HYDROXIDE SUSP 30 ML CUP PO PRN (14:45)
[2017-09-26] MEDS ORDERED: LACTULOSE SYRUP 20 GM/30 ML CUP PO PRN (14:45)
--- NOTE | 2017-09-26 14:46 | HHI.DCPOC ---
Discharge Care Plan Diagnosis: (1) GERD (gastroesophageal reflux disease) (2) Esophageal stricture (3) Cerebral palsy (4) Constipation by delayed colonic transit Your Health Problems Are: Difficulty with ADL Difficulty to Swallow Difficulty with Speech Goals to Promote Your Health * To prevent worsening of your condition and complications * To maintain your health at the optimal level Directions to Meet Your Goals Take your medications as prescribed Follow your dietary instruction Follow activity as directed Keep your appointments as scheduled Take your immunizations and boosters as scheduled If your symptoms worsen call your PCP, if no PCP go to Urgent Care Center or Emergency Room Smoking is Dangerous to Your Health. Avoid second hand smoke Call the 24-hour hour crisis hotline for domestic abuse at Leticia Álvarez [facility] Sep 26, 2017 14:46
[2017-09-26] MEDS ORDERED: LACTULOSE SYRUP 20 GM/30 ML CUP PO ONE (15:00)
[2017-09-26] MEDS ORDERED: IOHEXOL 350 MG/ML 10 ML VIAL (for RAD DIAG) IVCONTRAST ONE (15:14)
[2017-09-26] MEDS ORDERED: SOD PHOSPHATE/SOD BIPHOSPHATE (ADULT) ENEMA 133ML RECTAL ONE (16:00)
--- NOTE | 2017-09-26 16:07 | RADRPT ---
EXAM DATE/TIME: 09/26/2017 15:14 [place] COMPARISON: No previous studies available for comparison. INDICATIONS : Dyspnea; evalute for pulmonary embolism. IV CONTRAST: 75 cc Omnipaque 350 (iohexol) IV RADIATION DOSE: 10.84 CTDIvol (mGy) MEDICAL HISTORY : Hypertension. SURGICAL HISTORY : Hysterectomy. ENCOUNTER: Initial ACUITY: 1 day TECHNIQUE: Volumetric scanning of the chest was performed using a pulmonary embolism protocol MIP images were re constructed. Using automated exposure control and adjustment of the mA and/or kV according to patien t size, radiation dose was kept as low as reasonably achievable to obtain optimal diagnostic quality images. DICOM format image data is available electronically for review and comparison. Follow-up recommendations for detected pulmonary nodules are based at a minimum on nodule size and pa tient risk factors according to Fleischner Society Guidelines. FINDINGS: There is a dominant 2 cm nodule right lobe of thyroid. The cardiac silhouette is prominent with mild interstitial edema Artifact is present from posterior spinal fixation. I due to good look at the central pulmonary vess els. There is no evidence for pulmonary emboli. Upper abdominal contents are unremarkable. CONCLUSION: Negative for central pulmonary emboli. Probable moderate congestive failure Earl Osorio MD FACR on September 26, 2017 at 15:59 Board Certified Radiologist. This report was verified electronically.
[2017-09-26] MEDS ORDERED: FAMO20TA2 PO (16:55)
[2017-09-26] MEDS ORDERED: Lactulose Liq PO (16:57)
[2017-09-26 17:01] LABS: HEMOGLOBIN A1C 6.6 % (4.3-6.0)
--- NOTE | 2017-09-26 17:17 | ECHRPT ---
Indication: Shortness of Breath CONCLUSIONS The left ventricular systolic function is normal with an estimated ejection fraction in the range of 60-65%. No regional wall motion abnormalities are present. Mild concentric left ventricular hypertrophy. Normal left ventricular size. Trace mitral valve regurgitation. There is trace tricuspid valve regurgitation. The estimated pulmonary arterial pressure is 33 mmHg. BP: / HR: 93 Rhythm: Sinus MEASUREMENTS (Male / Female) Normal Values Technical Quality:Fair 2D ECHO LV Diastolic Diameter PLAX 3.8 cm 4.2 - 5.9 / 3.9 - 5.3 cm LV Systolic Diameter PLAX 2.7 cm IVS Diastolic Thickness 1.1 cm 0.6 - 1.0 / 0.6 - 0.9 cm LVPW Diastolic Thickness 1.0 cm 0.6 - 1.0 / 0.6 - 0.9 cm LV Relative Wall Thickness 0.6 RV Internal Dim ED PLAX 3.1 cm LVOT Diameter 1.8 cm LA Systolic Diameter LX 2.9 cm 3.0 - 4.0 / 2.7 - 3.8 cm M-MODE Aortic Root Diameter MM 2.6 cm LA Systolic Diameter MM 3.0 cm LA Ao Ratio MM 1.2 AV Cusp Separation MM 1.8 cm DOPPLER AV Peak Velocity 102.0 cm/s AV Peak Gradient 4.2 mmHg LVOT Peak Velocity 77.4 cm/s LVOT Peak Gradient 2.4 mmHg AV Area Cont Eq pk 1.9 cm MV Area PHT 3.4 cm Mitral E Point Velocity 58.0 cm/s Mitral A Point Velocity 74.7 cm/s Mitral E to A Ratio 0.8 TR Peak Velocity 242.0 cm/s TR Peak Gradient 23.4 mmHg Right Atrial Pressure 10.0 mmHg Pulmonary Artery Systolic Pressu 33.4 mmHg Right Ventricular Systolic Press 33.4 mmHg FINDINGS LEFT VENTRICLE The left ventricular systolic function is normal with an estimated ejection fraction in the range of 60-65%. No regional wall motion abnormalities are present. Mild concentric left ventricular hypertrophy. Normal left ventricular size. RIGHT VENTRICLE Normal right ventricular size and systolic function. LEFT ATRIUM The left atrial size is normal. RIGHT ATRIUM The right atrial size is normal. ATRIAL SEPTUM Normal atrial septal thickness without atrial level shunting by limited color doppler interrogation. AORTA The aortic root and proximal ascending aorta are normal in size on limited imaging. MITRAL VALVE Structurally normal mitral valve. Trace mitral valve regurgitation. AORTIC VALVE Trileaflet aortic valve. No aortic valve stenosis or regurgitation. TRICUSPID VALVE Structurally normal tricuspid valve. There is trace tricuspid valve regurgitation. The estimated pulmonary arterial pressure is 33 mmHg. PULMONARY VALVE Trivial pulmonary valve regurgitation. VESSELS The inferior vena cava is normal in size. PERICARDIUM No pericardial effusion. Figueroa Chris MD (Electronically Signed) Final Date:26 September 2017 17:16
[2017-09-26] MEDS: FAMOTIDINE 20 MG TAB PO SCH (17:56)
[2017-09-26] MEDS: DEXT 5%-NACL 0.45% 1000 ML INJ 1,000 ML IV SCH (17:57)
[2017-09-26] MEDS: MONTELUKAST SODIUM 10 MG TAB PO SCH (20:48)
[2017-09-26] MEDS: DOCUSATE SODIUM 50 MG/SENNA 8.6 MG TAB PO SCH (20:48)
[2017-09-27] VITALS (7 sets, daily range): BP systolic 108–142; BP diastolic 55–71; PULSE 70–103; RESP 16–18; TEMP 98–98.7; O2SAT 94–96
[2017-09-27] MEDS ORDERED: CLAR10CA3 PO (01:23)
[2017-09-27] MEDS ORDERED: SODIUM CHLORIDE 0.65% NASAL SPRAY 45 ML BTL EACH NARE ONE (02:00)
[2017-09-27] MEDS ORDERED: LORATADINE 10 MG TAB PO ONE (02:00)
[2017-09-27] MEDS ORDERED: DEXTROSE 50% IN WATER 50 ML VIAL(D50) IV PUSH PRN (08:00)
[2017-09-27] MEDS ORDERED: INSULIN ASPART SUPPLEMENTAL SCALE SQ SCH (08:00)
[2017-09-27] MEDS ORDERED: GLUCAGON 1 MG/ML VIAL OTHER PRN (08:00)
--- NOTE | 2017-09-27 09:03 | HHI.DS ---
Discharge Summary Admission Date Sep 25, 2017 at 16:17 Discharge Date: Sep 27, 2017 Admitting Diagnosis SWALLOW EVAL, CONSTIPATION (1) GERD (gastroesophageal reflux disease) ICD Code: K21.9 - Gastro-esophageal reflux disease without esophagitis (2) Esophageal stricture ICD Code: K22.2 - Esophageal obstruction (3) Cerebral palsy ICD Code: G80.9 - Cerebral palsy, unspecified (4) Constipation by delayed colonic transit ICD Code: K59.01 - Slow transit constipation Procedures EGD Brief History - From Admission History from patient, ER physician communication, mother at the bedside, and review of medical records. Patient reported that she came to the hospital because she felt fluid all over her body and her stomach. She reports that her stomach has been bloating more and more. She states every time mom gave her medicine, it bloats her up constantly. She states that the symptoms comes and goes. However denies any nausea or vomiting. She reports she sometimes felt the food is stuck in her throat. She also admits to coughing a lot after she eats something. Does not really matter what type of food or what consistency she eats. The symptoms are there. Denies any fever. She essentially kept saying that she came to the hospital because she wants to check out her airways. She further clarifies with her mom that she has been short of breath. She reports she also came to check my heart because she has had family history of heart failures and heart issues. She sometimes reports of chest pains. She reports mainly as shortness of breath, abdominal bloating, or and ankle edema. She then also complained about having constant urination problem. But denies any urinary burning or pain on urination or blood in her urine. She states that she went to [facility] twice for her symptoms and nothing was really done. She denies high blood sugars at home. She states her sugars are always in the 100s and never greater than 200. Mom at the bedside also confirms this. Patient reports of constipation chronically. She states when she was at [place], mom was given multiple different medications to give it to her all at once. Even though she took the medicines, she would go to bathroom once and then she would get constipated again. She is worried about this constipation. Patient has history of cerebral palsy at which made her wheelchair-bound. She does have diabetes. She is not sure about gastroparesis. She does not really take much pain medicines. CBC/BMP: 09/26/17 0714 09/26/17 0714 Significant Findings Laboratory Tests Test 09/25/17 14:50 09/26/17 07:14 Eosinophils (%) (Auto) 5.4 % (0.0-4.0) 4.6 % (0.0-4.0) Urine Leukocyte Esterase TRACE (NEG) Urine Mucus FEW /lpf (OCC) Random Glucose 114 MG/DL (74-106) 122 MG/DL (74-106) Aspartate Amino Transf (AST/SGOT) 13 U/L (15-37) Chloride Level 108 MEQ/L (98-107) 109 MEQ/L (98-107) Troponin I LESS THAN 0.02 NG/ML Sodium Level 146 MEQ/L (136-145) Hemoglobin A1c 6.6 % (4.3-6.0) Imaging Last Impressions Chest X-Ray 09/25/177 Signed Impressions: Service Date/Time: September 15:05 - CONCLUSION: Underinflation but no acute cardiopulmonary abnormality is identified. Reginaldo Dillon MD Abdomen/Pelvis CT 09/25/17 1357 Signed Impressions: Service Date/Time: September 14:10 - CONCLUSION: 1. No CT evidence of small bowel obstruction. 2. Uncomplicated colonic diverticulosis. 3. Degenerative changes and scoliosis of the thoracolumbar spine. Pepe Pedro MD CT Angiography 09/25/17 0000 Signed Impressions: Service Date/Time: Tuesday, September 26, 2017 15:14 - CONCLUSION: Negative for central pulmonary emboli. Probable moderate congestive failure Earl Osorio MD FACR PE at Discharge GENERAL: This is a well-nourished, well-developed patient, in no apparent distress. SKIN: Warm and dry. HEENT: Normocephalic. Pupils equal round and reactive. Nose without bleeding. Airway patent. Left facial droop. NECK: Trachea midline. Mild nuchal rigidity. CARDIOVASCULAR: Regular rate and rhythm without murmurs, gallops, or rubs. RESPIRATORY: Clear to auscultation. Breath sounds equal bilaterally. No wheezes , rales, or rhonchi. GASTROINTESTINAL: Abdomen soft, non-tender, nondistended. Bowel Sounds normoactive x4. MUSCULOSKELETAL: Extremities without clubbing, cyanosis. Bilateral foot edema. Bilateral foot drop and contraction. Right upper extremity contraction. Left upper extremity contraction. Prefers leaning towards the left side. NEUROLOGICAL: Awake and alert. Oriented to place, person. Normal speech. Pt update on day of discharge Follow-up visit abdominal pain, constipation, bloating. Patient seen and examined today. Mother at the bedside. Reports having bowel movements yesterday and able to eat last night. Denies pain and discomfort. Denies SOB/ dyspnea. Denies chest pain, palpitations, headaches, dizziness. Denies fevers, chills, nausea, vomiting. Denies abdominal pain, cramping, bloatedness. Denies dysuria. Patient and mother are very thankful of the service did she got. States that she has been going to [facility] and [facility] without getting clarity of patient condition. Reporting she was even refused testing. States that we have done so much for her. Very appreciative. Discuss DC plans. Verbalized understanding. Hospital Course Patient is a 51 year old -[place] female with history of cerebral palsy at , GERD, asthma, HTN who came into the hospital with complaints of stomach bloating, chronic constipation unable to eat. Patient had abdominal bloating, dysphagia, odynophagia, GERD. Gastroenterology consulted and patient underwent EGD. EGD showed distal esophageal ring status post dilatation size 7 mm savory guidewire dilator. Mild gastritis biopsy was done from the antrum. Normal duodenum. She is recommended no NSAIDs. Start Zantac 150 milligrams twice a day. Recommend to chew food well. Dilatation as needed. Patient will follow up with GI in the outpatient. Patient also found to have chronic constipation. Since she has limited mobility. Mother reported she has no bowel movement. Lactulose and enema was done with success. CT of the abdomen and pelvis showed no CT evidence of small bowel obstruction. Uncomplicated colonic diverticulosis. Degenerative changes and scoliosis of thoracolumbar spine. Discussed extensively with mother patient she will continue with Senokot , will add lactulose and enema to be done daily by their aid. Verbalized understanding. Patient has met maximal benefits of hospitalization. Clinically stable for discharge. Patient and mother are very thankful of the service did she got. States that she has been going to [facility] and [facility] without getting clarity of patient condition. Reporting she was even refused testing. States that we have done so much for her. Very appreciative. Discuss DC plans. Pt Condition on Discharge: Stable Discharge Disposition: Discharge Home Discharge Time: <= 30 minutes Discharge Instructions DIET: Follow Instructions for: Diabetic Diet Speech Therapy-Diet Recommends: Mechanical Soft Activities you can perform: Regular-No Restrictions Follow up Referrals: Gastroenterology - 2 Weeks with Hilda Starr MD PCP Follow-up - 2-3 Days New Medications: Famotidine (Famotidine) 20 Mg Tab 20 MG PO Q12HR for GERD, #60 TAB [Lactulose Liq] () 30 ML SYRP 30 ML PO DAILY PRN for SEVERE CONSITIPATION, #300 ML Continued Medications: Aspirin (Aspirin Low Dose) 81 Mg Chew 81 MG CHEW DAILY, TAB 0 Refills Chlorpheniramine (Allergy Tablets) 4 Mg Tab Unknown Dose PO Q4H PRN for Allergies, TAB 0 Refills Diazepam (Diazepam) 10 Mg Tab 10 MG PO DAILY, TAB 0 Refills Metformin (Metformin) 500 Mg Tab 500 MG PO BIDPC for Blood Sugar Management, TAB 0 Refills Montelukast (Montelukast) 10 Mg Tab 10 MG PO HS, TAB 0 Refills Omeprazole (Omeprazole) 20 Mg Tab 20 MG PO DAILY, TAB 0 Refills Pravastatin (Pravastatin) 20 Mg Tab 20 MG PO DAILY for Cholesterol Management, TAB 0 Refills Valsartan (Valsartan) 160 Mg Tab 160 MG PO DAILY, TAB 0 Refills [atoz eye gtt] () EACH EYE [lastain eye gtt] () Leticia Álvarez Sep 27, 2017 09:03
--- NOTE | 2017-09-27 09:03 | HHI.PR ---
Subjective Remarks Follow-up visit abdominal pain, constipation, bloating. Patient seen and examined today. Mother at the bedside. Reports having bowel movements yesterday and able to eat last night. Denies pain and discomfort. Denies SOB/ dyspnea. Denies chest pain, palpitations, headaches, dizziness. Denies fevers, chills, nausea, vomiting. Denies abdominal pain, cramping, bloatedness. Denies dysuria. Patient and mother are very thankful of the service did she got. States that she has been going to [facility] and [facility] without getting clarity of patient condition. Reporting she was even refused testing. States that we have done so much for her. Very appreciative. Discuss DC plans. Objective Vitals Vital Signs Date Time Temp Pulse Resp B/P (MAP) Pulse Ox O2 Delivery O2 Flow Rate FiO2 09/27/17 07:55 98.1 70 18 122/58 (79) 96 09/27/17 04:31 82 09/27/17 03:46 98.7 84 16 108/55 (72) 94 09/27/17 00:48 98.1 97 16 142/71 (94) 95 09/27/17 00:02 96 09/26/17 20:22 97.9 98 18 134/66 (88) 96 09/26/17 20:19 93 09/26/17 15:49 87 09/26/17 15:32 98.6 96 16 133/84 (100) 96 09/26/17 12:15 98.2 97 16 137/93 (108) 98 I/O 09/26/17 09/26/17 09/26/17 09/27/17 09/27/17 09/27/17 07:00 15:00 23:00 07:00 15:00 23:00 Intake Total 240 ml 100 ml 250 ml Balance 240 ml 100 ml 250 ml Intake Oral 240 ml 250 ml Other 100 ml # Voids 3 # Bowel Movements 3 Result Diagram: 09/26/1771309/26/17713 Imaging Last Impressions Chest X-Ray 09/25/17 2401 Signed Impressions: Service Date/Time: September 15:05 - CONCLUSION: Underinflation but no acute cardiopulmonary abnormality is identified. Reginaldo Dillon MD Abdomen/Pelvis CT 09/25/17 6579 Signed Impressions: Service Date/Time: September 14:10 - CONCLUSION: 1. No CT evidence of small bowel obstruction. 2. Uncomplicated colonic diverticulosis. 3. Degenerative changes and scoliosis of the thoracolumbar spine. Pepe Pedro MD CT Angiography 09/25/17 0000 Signed Impressions: Service Date/Time: Tuesday, September 26, 2017 15:14 - CONCLUSION: Negative for central pulmonary emboli. Probable moderate congestive failure Earl Osorio MD FACR Objective Remarks GENERAL: This is a well-nourished, well-developed patient, in no apparent distress. SKIN: Warm and dry. HEENT: Normocephalic. Pupils equal round and reactive. Nose without bleeding. Airway patent. Left facial droop. NECK: Trachea midline. Mild nuchal rigidity. CARDIOVASCULAR: Regular rate and rhythm without murmurs, gallops, or rubs. RESPIRATORY: Clear to auscultation. Breath sounds equal bilaterally. No wheezes , rales, or rhonchi. GASTROINTESTINAL: Abdomen soft, non-tender, nondistended. Bowel Sounds normoactive x4. MUSCULOSKELETAL: Extremities without clubbing, cyanosis. Bilateral foot edema. Bilateral foot drop and contraction. Right upper extremity contraction. Left upper extremity contraction. Prefers leaning towards the left side. NEUROLOGICAL: Awake and alert. Oriented to place, person. Normal speech. Procedures EGD A/P Problem List: (1) GERD (gastroesophageal reflux disease) ICD Code: K21.9 - Gastro-esophageal reflux disease without esophagitis (2) Esophageal stricture ICD Code: K22.2 - Esophageal obstruction (3) Cerebral palsy ICD Code: G80.9 - Cerebral palsy, unspecified (4) Constipation by delayed colonic transit ICD Code: K59.01 - Slow transit constipation Assessment and Plan Patient is a 51 year old -[place] female with history of cerebral palsy at , GERD, asthma, HTN who came into the hospital with complaints of stomach bloating, chronic constipation unable to eat. Abdominal bloating Dysphasia, odynophagia GERD -Gastric neurology consulted. Patient had EGD -EGD showed distal esophageal ring status post dilatation size 7 mm savory guidewire dilator. Mild gastritis biopsy was done from the antrum. Normal duodenum. -Recommends no NSAIDs. Zantac 150 mg twice a day. Chew food well. Dilatation as needed. -Patient follow-up with GI Chronic constipation -No BM 2 days per mother. -Lactulose 1 dose now, and enema -CT of the abdomen and pelvis showed no CT evidence of small bowel obstruction. Uncomplicated colonic diverticulosis. Degenerative changes and scoliosis of thoracolumbar spine -Patient had 3 BMs last night -Discussed extensively with mother and patient she will continue to do Senokot will add lactulose and enema to be done daily by her aide when she gets home. Verbalized understanding. Asthma, not in exacerbation Sinus problems and allergies not in exacerbation. -Continue Singulair -Continue Claritin HTN HLD -Continue valsartan, aspirin, pravastatin DVT prop Lovenox Discharge Planning Plan to DC home today. Leticia Álvarez Sep 27, 2017 09:03
[2017-09-27] MEDS ORDERED: LORATADINE 10 MG TAB PO SCH (09:15)
[2017-09-27] MEDS ORDERED: SENN187 PO (09:19)
[2017-09-27] MEDS ORDERED: MINER RECTAL (09:24)
[2017-09-27] MEDS ORDERED: Lactulose Liq PO (09:24)
[2017-09-27] MEDS: SODIUM CHLORIDE 0.9% FLUSH 10 ML FLUSH IV FLUSH SCH (09:32)
[2017-09-27] MEDS: ASPIRIN 81 MG CHEW TAB CHEW SCH (09:32)
[2017-09-27] MEDS: ENOXAPARIN SODIUM 40 MG/0.4 ML SYRINGE SQ SCH (09:33)
[2017-09-27] MEDS: PANTOPRAZOLE SOD 20 MG DELAYED RELEASE TAB PO SCH (09:33)
[2017-09-27] MEDS: DIAZEPAM 10 MG TAB PO SCH (09:33)
[2017-09-27] MEDS: VALSARTAN 160 MG TAB PO SCH (09:33)
[2017-09-27] MEDS: DOCUSATE SODIUM 50 MG/SENNA 8.6 MG TAB PO SCH (09:33)
[2017-09-27] MEDS: PRAVASTATIN SOD 20 MG TAB PO SCH (09:33)
[2017-09-27] MEDS: FAMOTIDINE 20 MG TAB PO SCH (09:33)
--- NOTE | 2017-09-27 10:04 | HHI.GIFU ---
Subjective Remarks Pt resting in bed in NAD. Swallowing improved somewhat. + BM. (Waleska Delatorre) Objective Vitals I&O Vital Signs Date Time Temp Pulse Resp B/P (MAP) Pulse Ox O2 Delivery O2 Flow Rate FiO2 09/27/17 07:55 98.1 70 18 122/58 (79) 96 09/27/17 04:31 82 09/27/17 03:46 98.7 84 16 108/55 (72) 94 09/27/17 00:48 98.1 97 16 142/71 (94) 95 09/27/17 00:02 96 09/26/17 20:22 97.9 98 18 134/66 (88) 96 09/26/17 20:19 93 09/26/17 15:49 87 09/26/17 15:32 98.6 96 16 133/84 (100) 96 09/26/17 12:15 98.2 97 16 137/93 (108) 98 I/O 09/26/17 09/26/17 09/26/17 09/27/17 09/27/17 09/27/17 07:00 15:00 23:00 07:00 15:00 23:00 Intake Total 240 ml 100 ml 250 ml Balance 240 ml 100 ml 250 ml Intake Oral 240 ml 250 ml Other 100 ml # Voids 3 # Bowel Movements 3 Laboratory Laboratory Tests Test 09/25/17 14:50 09/26/17 07:14 Urine Color LIGHT-YELLOW Urine Turbidity CLEAR Urine pH 7.0 Urine Specific [place] 1.010 Urine Protein NEG mg/dL Urine Glucose (UA) NEG mg/dL Urine Ketones NEG mg/dL Urine Occult Blood NEG Urine Nitrite NEG Urine Bilirubin NEG Urine Urobilinogen LESS THAN 2.0 MG/DL Urine Leukocyte Esterase TRACE Urine RBC 1 /hpf Urine WBC LESS THAN 1 /hpf Urine Squamous Epithelial Cells 1 /hpf Urine Mucus FEW /lpf Microscopic Urinalysis Comment CULT NOT INDICATED Blood Urea Nitrogen 8 MG/DL 7 MG/DL Creatinine 0.58 MG/DL 0.52 MG/DL Random Glucose 114 MG/DL 122 MG/DL Total Protein 7.9 GM/DL Albumin 3.8 GM/DL Calcium Level 9.6 MG/DL 9.3 MG/DL Alkaline Phosphatase 86 U/L Aspartate Amino Transf (AST/SGOT) 13 U/L Alanine Aminotransferase (ALT/SGPT) 18 U/L Total Bilirubin 0.3 MG/DL Sodium Level 143 MEQ/L 146 MEQ/L Potassium Level 3.8 MEQ/L 3.5 MEQ/L Chloride Level 108 MEQ/L 109 MEQ/L Carbon Dioxide Level 27.7 MEQ/L 29.9 MEQ/L Total Creatine Kinase 39 U/L Troponin I LESS THAN 0.02 NG/ML B-Type Natriuretic Peptide 2 PG/ML Lipase 138 U/L White Blood Count 5.6 TH/MM3 Red Blood Count 4.33 MIL/MM3 Hemoglobin 12.4 GM/DL Hematocrit 38.0 % Mean Corpuscular Volume 87.7 FL Mean Corpuscular Hemoglobin 28.6 PG Mean Corpuscular Hemoglobin Concent 32.7 % Red Cell Distribution Width 15.3 % Platelet Count 176 TH/MM3 Mean Platelet Volume 9.9 FL Neutrophils (%) (Auto) 48.9 % Lymphocytes (%) (Auto) 39.8 % Monocytes (%) (Auto) 6.1 % Eosinophils (%) (Auto) 4.6 % Basophils (%) (Auto) 0.6 % Neutrophils # (Auto) 2.7 TH/MM3 Lymphocytes # (Auto) 2.2 TH/MM3 Monocytes # (Auto) 0.3 TH/MM3 Eosinophils # (Auto) 0.3 TH/MM3 Basophils # (Auto) 0.0 TH/MM3 CBC Comment DIFF FINAL Differential Comment Anion Gap 7 MEQ/L Estimat Glomerular Filtration Rate 150 ML/MIN Hemoglobin A1c 6.6 % Imaging Last Impressions Chest X-Ray 09/25/177 Signed Impressions: Service Date/Time: September 15:05 - CONCLUSION: Underinflation but no acute cardiopulmonary abnormality is identified. Reginaldo Dillon MD Abdomen/Pelvis CT 09/25/17 1357 Signed Impressions: Service Date/Time: September 14:10 - CONCLUSION: 1. No CT evidence of small bowel obstruction. 2. Uncomplicated colonic diverticulosis. 3. Degenerative changes and scoliosis of the thoracolumbar spine. Pepe Pedro MD CT Angiography 09/25/17 0000 Signed Impressions: Service Date/Time: Tuesday, September 26, 2017 15:14 - CONCLUSION: Negative for central pulmonary emboli. Probable moderate congestive failure Earl Osorio MD FACR Physical Exam HEENT: normocephalic; atraumatic; no jaundice. CHEST: CTA CARDIAC: RRR ABDOMEN: Soft, nondistended, nontender; no hepatosplenomegaly; bowel sounds are present in all four quadrants. EXTREMITIES: No clubbing, cyanosis, or edema. BLE atrophy SKIN: Normal; no rash; no jaundice. WHEEL INSTALLER: alert (Waleska Delatorre) Assessment and Plan Plan ASSESSMENT - dysphagia - for last 2-3 months pt having coughing and choking sensation with liquids and solids, has not eaten much. COST ESTIMATING ENGINEER has evaluated and she is currently on clear liquid diet. Never had EGD. - chronic constipation - 2/2 CP & wheelchair bound. 09/27/17 S/P egD and dilatation, found distal esophageal ring, mild gastritis. + BM. swallowing better. PLAN - [facility] soft diet per COST ESTIMATING ENGINEER - continue ST - bowel regimen - egd and dilatation prn - ok to d/c from GI standpoint pt seen by myself and Dr Starr and this note is on his behalf (Waleska Delatorre) Plan Patient tolerated food okay, continue with soft diet, continue with bowel regimen, follow-up as an outpatient as needed (Hilda Starr MD) Waleska Delatorre Sep 27, 2017 10:04 Hilda Starr MD Sep 27, 2017 14:33
--- NOTE | 2017-09-27 17:04 | EKG ---
Date Performed: 09/26/2017 Time Performed: 11:07:28 PTAGE: 51 years EKG: NORMAL Sinus rhythm Abnormal R-wave progression, consider prior anterolateral CO, lead misplacement or even dextricardia . Repeat EKG and clinical correlation requested. ABNORMAL ECG NO PREVIOUS TRACING DOCTOR: Maria G Casarez Interpretating Date/Time 09/27/2017 17:04:00
== END 2017-09-27 13:45 | disposition home or self-care (01) ==
LOC: NEPD 12:01 → NEDA 16:17 → NEPFCDU 19:15
PROVIDERS: ADMIT Internal Medicine; ATTEND Internal Medicine
DX: K22.2 Esophageal obstruction (principal); R47.02 Dysphasia; K29.70 Gastritis, unspecified, without bleeding; K57.30 Diverticulosis of large intestine without perforation or abscess without bleeding; K59.01 Slow transit constipation; K21.9 Gastro-esophageal reflux disease without esophagitis; I10 Essential (primary) hypertension; R07.9 Chest pain, unspecified; E11.9 Type 2 diabetes mellitus without complications; E78.5 Hyperlipidemia, unspecified; E78.00 Pure hypercholesterolemia, unspecified; G80.9 Cerebral palsy, unspecified; M41.9 Scoliosis, unspecified; J45.909 Unspecified asthma, uncomplicated; Z79.82 Long term (current) use of aspirin; Z23 Encounter for immunization; Z99.3 Dependence on wheelchair; Z90.710 Acquired absence of both cervix and uterus; Z83.3 Family history of diabetes mellitus; Z82.49 Family history of ischemic heart disease and other diseases of the circulatory system
CPT/HCPCS: 00731; 43239; 43248; 71045; 71275; 74176; 80048; 80053; 81001; 82550; 82948; 83036; 83690; 83880; 84484; 85025; 88305; 88312; 90732; 92610; 93005; 93306; 96360; 96361; 96372; 99285; C1769; G0009; G0378; G8996; G8997; J1650; J1815; J2370; J7040; Q9967; 90471